=== PATIENT | male | born 1950 | race Caucasian/White ===

== ENCOUNTER 2019-09-30 07:40 | Day surgery (SDC) | payer MEDICARE ==
[2019-09-27 10:11] VITALS: BMI 24.2
[~2019-09-30 07:40] MED LIST: LACTATED RINGERS 1,000 ML IV SCH
[2019-09-30 08:21] VITALS: TEMP 98.5
[2019-09-30] MEDS ORDERED: LIDOCAINE 1% 20 ML VIAL (10MG/ML) FOR IV START INTRADERMA ONE (08:36)
[2019-09-30] MEDS ORDERED: PROPOFOL 10 MG/ML 20 ML VIAL IV ONE (08:56)
[2019-09-30] MEDS ORDERED: LIDOCAINE 1% INJ 10MG/ML (20 ML MDV) ONE (08:56)
--- NOTE | 2019-09-30 08:57 | P.GSHP ---
History of Present Illness H&P Date: 09/30/19 Chief Complaint: Screening colonoscopy Is a 69-year-old male who presents today for screening colonoscopy. Patient denies a significant GI complaints. Past Medical History Past Medical History: Atrial Fibrillation, GERD/Reflux, Hyperlipidemia Additional Past Medical History / Comment(s): past hx. a-fib 7-8 yrs. ago History of Any Multi-Drug Resistant Organisms: None Reported Past Surgical History: Cardiac Ablation, Coronary Bypass/CABG, Heart Catheterization Additional Past Surgical History / Comment(s): quad bypass 19 yrs. ago, colonoscopy, cardiac ablation x3 Past Anesthesia/Blood Transfusion Reactions: No Reported Reaction Smoking Status: Never smoker Medications and Allergies Home Medications Medication Instructions Recorded Confirmed Type Aspirin 81 mg PO DAILY 09/27/19 09/30/19 History Famotidine [Pepcid] 40 mg PO BID 09/27/19 09/30/19 History Lovastatin [Mevacor] 40 mg PO HS 09/27/19 09/30/19 History Allergies Allergy/AdvReac Type Severity Reaction Status Date / Time No Known Allergies Allergy Verified 09/30/19 08:17 Surgical - Exam Vital Signs Temp Pulse Resp BP Pulse Ox 98.5 F 61 18 192/92 96 09/30/19 08:20 09/30/19 08:20 09/30/19 08:20 09/30/19 08:20 09/30/19 08:20 - General well developed, well nourished, no distress - Eyes PERRL - ENT normal pinna - Neck no masses - Respiratory normal expansion - Cardiovascular Rhythm: regular - Abdomen Abdomen: soft, non tender Assessment and Plan Assessment: We'll perform screening colonoscopy.
--- NOTE | 2019-09-30 09:12 | P.OP ---
Date of Procedure: 09/30/19 Preoperative Diagnosis: Screening colonoscopy Postoperative Diagnosis: Diverticulosis External hemorrhoids Procedure(s) Performed: Colonoscopy Anesthesia: MAC Surgeon: Raphael Thomas Pathology: none sent Condition: stable Disposition: PACU Description of Procedure: The patient's placed on the endoscopy table in the lateral position. He received IV sedation. The digital rectal exam performed which revealed no abnormalities. Flexible colonoscope was then placed patient anus and passed throughout the entire colon. The ileocecal valve was visualized. The cecum, ascending and transverse colon appeared normal. In the descending; there is moderate to severe diverticulosis. In the sigmoid: Is extensive diverticular changes. There is no evidence of diverticulitis. Scope was then brought back the rectum and this appeared normal. Scope withdrawn for patient.
[2019-09-30 09:16] VITALS: RESP 16
[2019-09-30 09:35] VITALS: BP 139/75; PULSE 51
== END 2019-09-30 09:51 | disposition home or self-care (01) ==
LOC: ORWHC2ENDO 07:40
PROVIDERS: ATTEND Surgery
DX: Z12.11 Encounter for screening for malignant neoplasm of colon (principal); K57.30 Diverticulosis of large intestine without perforation or abscess without bleeding; K64.4 Residual hemorrhoidal skin tags; I48.91 Unspecified atrial fibrillation; I25.10 Atherosclerotic heart disease of native coronary artery without angina pectoris; I10 Essential (primary) hypertension; E78.5 Hyperlipidemia, unspecified; K21.9 Gastro-esophageal reflux disease without esophagitis; Z95.1 Presence of aortocoronary bypass graft; Z79.82 Long term (current) use of aspirin; Z79.899 Other long term (current) drug therapy; Z98.890 Other specified postprocedural states
CPT/HCPCS: J2001; J2704; G0121